=== PATIENT | female | born 1985 | race Caucasian/White ===

== ENCOUNTER 2016-12-12 22:39 | Emergency (ER) | payer OTHER ==
[~2016-12-12] VITALS: Ht 165.1 cm; Wt 106.8 kg
[2016-12-12 22:39] VITALS: BP 115/78
[2016-12-13 00:05] LABS: HEMATOCRIT 39.1 % (36.0-46.0); MCH 30.3 PG (29.0-34.0); MCHC 33.5 G/DL (30.0-36.0); MCV 90.3 FL (83-99); PLATELET COUNT 374 K/uL (156-360); RBC DIS.WIDTH-CV 13.2 % (11.8-14.6); RBC DIS.WIDTH-SD 44.5 % (39-53); RED BLOOD COUNT 4.33 M/uL (3.80-5.20); WHITE BLOOD COUNT 15.9 K/uL (4.1-10.2)
[2016-12-13 00:19] LABS: CHLORIDE 105 mEq/L (99-109); POTASSIUM 3.7 mEq/L (3.7-5.4); SODIUM 139 mEq/L (136-147)
[2016-12-13 00:21] LABS: GLUCOSE 94 mg/dL (70-99)
[2016-12-13 00:22] LABS: ANION GAP 10 MEQ/L (2-14)
[2016-12-13 00:24] LABS: GFR ESTIMATE (CALCULATED) > 59 mL/min/
[2016-12-13 00:25] LABS: UREA NITROGEN (BUN) 19 mg/dL (9-23)
[2016-12-13 00:33] LABS: QUANTITATIVE HCG < 4.0 MIU/ML
[2016-12-13] MEDS ORDERED: NORCO 5/3251 TABLET PO (02:07)
== END 2016-12-13 03:41 | disposition home or self-care (01) ==
LOC: EME 22:39 → TRA 22:39
PROVIDERS: Emergency Medicine
PROC: 3E0234Z Introduction of Serum, Toxoid and Vaccine into Muscle, Percutaneous Approach (ICD-10-PCS; principal; 2016-12-12)
PROC: 0HQ0XZZ Repair Scalp Skin, External Approach (ICD-10-PCS; principal; 2016-12-12)
DX: S01.01XA Laceration without foreign body of scalp, initial encounter (principal); S09.90XA Unspecified injury of head, initial encounter; S70.01XA Contusion of right hip, initial encounter; S06.0X0A Concussion without loss of consciousness, initial encounter; V49.50XA Passenger injured in collision with unspecified motor vehicles in traffic accident, initial encounter; Z23 Encounter for immunization; F17.200 Nicotine dependence, unspecified, uncomplicated
CPT/HCPCS: 70450; 70486; 71010; 72125; 73501; 80048; 84702; 85027